=== PATIENT | male | born 1945 | race Caucasian/White ===

== ENCOUNTER 2018-05-14 08:15 | Observation (INO) | payer OTHER ==
[~2018-05-14 08:15] MED LIST: POVIDONE-IODINE 20 ML in SODIUM CL IRRIG SOLUTION 500 ML IRR ONE; ROPIVACAINE 0.2% 80 MG, EPINEPHrine 0.2 MG, KETOROLAC TROMETHAMINE 30 MG in SYRINGE 0 ML IU ONE; TRANEXAMIC ACID 1,000 MG in NS 100 ML IV ONE; TRANEXAMIC ACID 3,000 MG in NS (SYRINGE) 50 ML IRR ONE
[2018-05-14] MEDS ORDERED: GABAPENTIN 300 MG CAP PO ONE (08:44)
[2018-05-14] MEDS ORDERED: DEXAMETHASONE 4 MG/ML VIAL IVP ONE (08:44)
[2018-05-14] MEDS ORDERED: FAMOTIDINE 20 MG TAB PO ONE (08:44)
[2018-05-14] MEDS ORDERED: ONDANSETRON 4 MG/2 ML VIAL IVP ONE (08:44)
[2018-05-14] MEDS ORDERED: ACETAMINOPHEN 325 MG TAB PO ONE (08:44)
[2018-05-14] MEDS ORDERED: ceFAZolin 2 GM/DEXTROSE 100 ML IV ONE (08:44)
[2018-05-14] MEDS ORDERED: LIDOCAINE 1% 2 ML INJ ID PRN (08:45)
[2018-05-14] MEDS ORDERED: LR 1,000 ML IV ONE (08:45)
[2018-05-14] MEDS ORDERED: VANCOMYCIN 1 GM VIAL ONE (09:40)
[2018-05-14] MEDS ORDERED: TRANEXAMIC ACID 3,000 MG/50 ML BAG IRR ONE (09:40)
[2018-05-14] MEDS ORDERED: ceFAZolin 1 GM/5 ML SYR ONE (09:41)
--- NOTE | 2018-05-14 10:12 | PDHPUP ---
History & Physical Update H&P update statement: This history and physical update is based on an assessment of the patient which was completed after admission or registration (within 24 hours), but prior to the surgery/procedure. H&P update: H&P reviewed & patient examined
--- NOTE | 2018-05-14 10:50 | PDANEPAE ---
ANE History of Present Illness OA here for TKA ANE Past Medical History - Cardiovascular History Hx Hypertension: Yes Hx Arrhythmias: No Hx Chest Pain: No Hx Coronary Artery / Peripheral Vascular Disease: No Hx CHF / Valvular Disease: No Hx Palpitations: No Cardiovascular History Comment: HYPERLIPIDEMIA - Pulmonary History Hx COPD: No Hx Asthma/Reactive Airway Disease: No Hx Recent Upper Respiratory Infection: No Hx Oxygen in Use at Home: No Hx Sleep Apnea: No Sleep Apnea Screening Result - Last Documented: Positive Pulmonary History Comment: douglas triggers - Neurologic History Hx Cerebrovascular Accident: No Hx Seizures: No Hx Dementia: No - Endocrine History Hx Diabetes: No - Renal History Hx Renal Disorders: No - Liver History Hx Hepatic Disorders: No - Neurological & Psychiatric Hx Hx Neurological and Psychiatric Disorders: No - Cancer History Hx Cancer: No - Congenital Disorder History Hx Congenital Disorders: No - GI History Hx Gastrointestinal Disorders: Yes Gastrointestinal History Comment: GERD - Other Health History Other Health History: GOUT. OA. wears glasses - Chronic Pain History Chronic Pain: Yes (right knee) - Surgical History Prior Surgeries: 08/18/15 LEFT tka with Terra. B WRIST- CARPAL TUNNEL 2013. APPENDECOMTY 1978 ANE Review of Systems Review of Systems: - Exercise capacity METS (RN): 4 METS ANE Patient History - Allergies Allergies/Adverse Reactions: No Known Allergies Allergy (Verified 04/26/18 16:11) - Home Medications Home Medications: Allopurinol [Allopurinol 100 MG (*)] 100 mg PO DAILY 07/27/15 [Last Taken ] Metoprolol Tartrate [Lopressor 50 mg (*)] 50 mg PO DAILY 07/27/15 [Last Taken 3 Days Ago ~05/11/18] Niacin [Niacin 500 mg (*)] 1,500 mg PO DAILY 07/27/15 [Last Taken 2 Days Ago ~] [place]-3 Fatty Acids [Fish Oil 1000 mg (*)] 2,000 mg PO BID 07/27/15 [Last Taken 1 Week Ago ~05/07/18] Omeprazole 20 mg PO HS #0 08/02/15 [Last Taken 1 Week Ago ~05/07/18] Atorvastatin Calcium [Lipitor 40 mg (*)] 40 mg PO HS 04/19/18 [Last Taken ] Cholecalciferol Vit D3 [Vitamin D3 (*)] 1,000 units PO DAILY 04/19/18 [Last Taken 1 Week Ago ~05/07/18] Herbals/Supplements -Info Only 1 each PO DAILY 04/19/18 [Last Taken 1 Week Ago ~ 05/07/18] Ibuprofen [Motrin (*)] 200 mg PO DAILY PRN 04/19/18 [Last Taken 1 Week Ago ~] Losartan Potassium 100 mg PO DAILY 04/19/18 [Last Taken 05/14/18] - NPO status NPO Status: no food or drink >8 hours NPO Since - Liquids (Date): 05/14/18 NPO Since - Liquids (Time): 05:30 NPO Since - Solids (Date): 05/13/18 NPO Since - Solids (Time): 19:00 - Anes Hx Anes Hx: no prior problems - Smoking Hx Smoking Status: Never smoked - Alcohol Use Alcohol Use: Occasionally - Family Anes Hx Family Anes Hx: none Family Hx Anesthesia Complications: NONE ANE Labs/Vital Signs - Vital Signs Blood Pressure: 129/77 Heart Rate: 58 Respiratory Rate: 18 O2 Sat (%): 97 Height: 172.72 cm Weight: 88.451 kg ANE Physical Exam - Airway Neck exam: FROM Mallampati Score: Class 2 Mouth exam: normal dental/mouth exam - Pulmonary Pulmonary: no respiratory distress, clear to auscultation - Cardiovascular Cardiovascular: regular rate and rhythym, no murmur, rub, or gallop - ASA Status ASA Status: II ANE Anesthesia Plan Anesthesia Plan: GA with mask, spinal Regional Anesthesia: continuous NB, adductor canal FNB Total IV Anesthesia: Yes
[2018-05-14] MEDS ORDERED: MIDAZOLAM 2 MG/2 ML VIAL ONE (10:57)
[2018-05-14] MEDS ORDERED: PROPOFOL/EMULSION 500 MG/50 ML BOTTLE IV ONE ×2 (10:59→12:14)
[2018-05-14] MEDS ORDERED: fentaNYL 100 MCG/2 ML INJ IVP PRN (12:20)
[2018-05-14] MEDS ORDERED: HYDROCODONE/APAP 5/325 TAB PO PRN (12:20)
[2018-05-14] MEDS ORDERED: oxyCODONE IR 5 MG TAB PO PRN ×2 (12:20→13:05)
[2018-05-14] MEDS ORDERED: HYDROmorphONE/DILAUDID 1 MG/ML INJ IVP PRN (12:20)
[2018-05-14] MEDS ORDERED: ONDANSETRON 4 MG/2 ML VIAL IVP PRN ×2 (12:20→13:05)
[2018-05-14] MEDS ORDERED: ACETAMINOPHEN 500 MG TAB PO PRN (12:20)
[2018-05-14] MEDS ORDERED: NALOXONE HCL 0.4 MG/ML INJ IVP PRN (12:20)
[2018-05-14] MEDS ORDERED: diphenhydrAMINE 25 MG CAP PO PRN (13:05)
[2018-05-14] MEDS ORDERED: POLYETHYLENE GLYCOL 3350 17 GM PKT PO PRN (13:05)
[2018-05-14] MEDS ORDERED: LACTULOSE 20 GM/30 ML UDCUP PO PRN (13:05)
[2018-05-14] MEDS ORDERED: BISACODYL 10 MG SUPP PR PRN (13:05)
[2018-05-14] MEDS ORDERED: PROMETHAZINE HCL 25 MG/ML INJ IVP PRN (13:05)
[2018-05-14] MEDS ORDERED: TEMAZEPAM 15 MG CAP PO PRN (13:05)
[2018-05-14] MEDS ORDERED: CYCLOBENZAPRINE 10 MG TAB PO PRN (13:05)
[2018-05-14] MEDS ORDERED: METOCLOPRAMIDE 10 MG/2 ML VIAL IVP PRN (13:05)
[2018-05-14] MEDS ORDERED: MAGNESIUM HYDROXIDE 30 ML UDCUP PO PRN (13:05)
[2018-05-14] MEDS ORDERED: DIPHENOXYLATE/ATROPINE LOMOTIL 1 TAB PO PRN (13:05)
[2018-05-14] MEDS ORDERED: PROMETHAZINE HCL 25 MG SUPPR PR PRN (13:05)
[2018-05-14] MEDS ORDERED: traMADol 50 MG TAB PO PRN (13:05)
[2018-05-14] MEDS ORDERED: ONDANSETRON DISINTEGRATING 4 MG TAB PO PRN (13:05)
[2018-05-14] MEDS ORDERED: NS 500 ML IV PRN (13:05)
--- NOTE | 2018-05-14 13:06 | POSTANESTH ---
Post Anesthetic Evaluation Cardiovascular Status: Normal, Stable, Similar to Pre-Op Cond Respiratory Status: Normal, Stable, Requires Airway Assist Level of Consciousness/Mental Status: Moderately Sleepy Pain Control: Adequate, Prn Tx Ordered Nausea/Vomiting Control: Adequate, Prn Tx Ordered Complications Possibly Related to Anesthesia: None Noted
[2018-05-14] MEDS ORDERED: LR 1,000 ML IV SCH (13:30)
--- NOTE | 2018-05-14 13:44 | GOP ---
[f rep st] OPERATIVE REPORT DATE OF OPERATION: 05/14/2018 SURGEON: Michael Ellison MD MANAGER UTILIZATION: Gonzalo Pugh, PAC and Carlos A Barajas CFA. ANESTHESIA: A combination of Marcaine, spinal, IV sedation, and adductor canal block. PREOPERATIVE DIAGNOSIS: Right knee severe degenerative arthritis with varus deformity. POSTOPERATIVE DIAGNOSIS: Right knee severe degenerative arthritis with varus deformity. PROCEDURE PERFORMED: Right total knee arthroplasty, cemented, Avelar and Nephew Journey II, posterior stabilized. FINDINGS: DESCRIPTION OF PROCEDURE: The patient was given 2 g of IV Ancef preoperatively within 60 minutes. H jin also received 1000 mg of IV tranexamic acid preoperatively. He was placed on the operating room ta ble and given spinal anesthesia with Marcaine by Dr. Ludwig. He was then placed supine and given IV s edation. A King catheter was not used. He wore a SANJU stocking and SCD on the nonoperative leg. A bolster was placed under the right hip to prevent excessive external rotation of the right leg. His right lower extremity was prepped with ChloraPrep from the upper thigh tourniquet to the tips of the toes. It was draped free using sterile sheets, stockinette, and Ioban plastic adhesive drape. His l ower leg was wrapped with compressive Coban. The leg was exsanguinated with elevation and a 6-inch c ompressive wrap, and the tourniquet was inflated to 250 mmHg. The World Health Organization time-out was performed to verify the correct patient identity and the c orrect surgical side and site. The [place] time-out was also performed. The DeMayo leg holding device was sterilely attached to the operating room table and used throughout the procedure to help position the knee. A straight midline incision was made centered on the patell a. Subcutaneous tissues were sharply divided and hemostasis was obtained using electrocautery. A me dial subcutaneous flap was developed and capsule and synovium were opened in medial parapatellar fash ion. Extensive degenerative changes were present in the medial compartment and patellofemoral joint. He was eroded down to subchondral bone on his medial femoral condyle and medial tibial plateau. Th e medial capsule and periosteum were elevated off the rim of the medial tibial plateau all the way ar ound to the posteromedial corner. His medial collateral ligament was released enough to balance the medial side of the knee. In order to improve exposure, his patella was prepared first. The original thickness of the patella was measured. Peripheral osteophytes removed. I cut a flat surface on the back of the patella. He was sized for a 35 mm round resurfacing component. I removed enough bone from the patella, such that the remaining bone, plus the thickness of the patellar component recreated the original thickness of the patella. The composite thickness was 25 mm. The intramedullary alignment guide system was used to set up the distal femoral cut. The distal femu r was cut in 5 degrees of valgus. Because I was using a posterior stabilized femoral component, I ma de a +2 mm cut on the distal femur. The sizing jig was used to determine proper femoral sizing. I s hifted the size 5 jig anteriorly 1 mm in order to accommodate the size 5 without notching the anterio r cortex. The 5-in-1 cutting block was applied, and the anterior and posterior condylar cuts and cristobal mfer cuts were made. The final jig was used to remove the central portion of the distal femur to acc ommodate the posterior stabilized femoral component. I was careful to determine proper rotation by r eferencing off Whitesides line and other bony landmarks. Each cut was checked for accuracy. The fem ur was sized for a size 5 posterior stabilized component. Trial component was tapped securely into p lace and was a good fit. Next, the tibia was prepared. The proximal tibial cut was made using the extramedullary alignment gu alisha system. The cut was made in a few degrees of posterior slope. I was careful to achieve proper v arus-valgus alignment and proper rotation. The posterior compartment was cleared of meniscal remnant s. Osteophytes were removed from the back of his femoral condyles. I checked the flexion extension gaps. He was still a little bit tight medially. I went back and did a little further release of his medial collateral ligament distally. At this point, the flexion and extension gaps were symmetrical . The tibia was sized for a size 4 component. He had a small cyst on the very medial edge of his me dial tibial plateau. This was cleaned with a curette and later filled with cement. I selected the 1 0 mm polyethylene trial tibial insert. The knee came to full extension and flexed to 130 degrees. Mira abdi had about 2 mm of lateral laxity in extension, but was well balanced in 90 degrees of flexion. The trial patellar button was applied and tracking was checked. He had excellent tracking without any d igital pressure. 40 cc of the joint anesthetic cocktail were injected into the posterior capsule, the quadriceps muscl e and tendon areas, and the subcutaneous tissues along the skin edges. The surfaces were prepared for cementing. They were carefully cleaned with the pulsating lavage irri gation and thoroughly dried. The CarboJet device was used to blow dry the cancellous surfaces. A do uble batch of high viscosity methylmethacrylate cement with 2 g of powdered vancomycin added was mixe d. While it was still in a doughy state, all [address] components were cemented in place. Excess cement was removed before it hardened. The 10 mm trial tibial insert was tried again and was the proper thickness. The actual component was inserted and locked into place. The knee was thoroughly irrigated 1 final time with a dilute Betadi ne solution. The tourniquet was deflated and the total tourniquet time was 51 minutes. 50 cc of tranexamic acid s olution were irrigated into the wound. The vastus medialis portion of the extensor mechanism was repaired with several interrupted figure-of -eight #2 FiberWire sutures. The capsule and synovium were closed first with multiple interrupted fi [id number]-sn-obcln 0 PDS sutures, followed by a running #2 barbed Ethicon Stratafix PDO suture. The subcu taneous tissues were closed with a running 0 barbed Ethicon Stratafix Monoderm suture. The skin was closed with a running 3-0 barbed Ethicon Stratafix Monoderm subcuticular suture. The skin was sealed with half-inch Steri-Strips. The wound was covered with a large Mepilex waterproof dressing and a 6 -inch compressive wrap. A long-leg SANJU stocking and SCD were applied, followed by the cooling device . He wore a stocking and SCD on the opposite leg during the procedure. The sacral Mepilex dressing was applied. I used a size 5 Avelar and Nephew cemented Oxinium posterior stabilized femoral component, size 4 ceme nted tibial base plate, a 10 mm posterior stabilized tibial insert, and a 35 mm cemented round all-po lyethylene resurfacing patellar component. The estimated blood loss following deflation of the tourniquet was about 100 cc. Sponge and needle count were correct on 2 occasions. He was awakened from anesthesia, transferred to his hospital [facility], and taken to PACU in satisfactor y condition. There were no recognized intraoperative complications. In the PACU, for additional pos toperative pain control, Dr. Ludwig performed an adductor canal block with an indwelling catheter. Jean Marie Pugh and Carlos A Barajas acted as surgical assistants. Their assistance was a medical necess ity for safe completion of the procedure. ANESTHESIA: Dr. Emmett Ludwig. /[id number]/MODL
[2018-05-14] MEDS: KETOROLAC 15 MG/1 ML SDV IVP SCH (17:45)
[2018-05-14] MEDS: ceFAZolin 2 GM/DEXTROSE 100 ML IV SCH (17:45)
[2018-05-14] MEDS ORDERED: ATORVASTATIN CALCIUM 40 MG TAB PO SCH (21:00)
[2018-05-14] MEDS ORDERED: PANTOPRAZOLE SODIUM 40 MG TAB PO SCH (21:00)
[2018-05-14] MEDS: ACETAMINOPHEN 325 MG TAB PO SCH (21:08)
[2018-05-14] MEDS: FAMOTIDINE 20 MG TAB PO SCH (21:10)
[2018-05-14] MEDS: SENNOSIDES/DOCUSATE SODIUM TAB PO SCH (21:10)
[2018-05-14] MEDS: ASPIRIN 325 MG TAB PO SCH (22:51)
[2018-05-15] MEDS: ACETAMINOPHEN 325 MG TAB PO SCH ×2 (01:16→08:02)
[2018-05-15] MEDS: KETOROLAC 15 MG/1 ML SDV IVP SCH ×3 (01:18→11:20)
[2018-05-15] MEDS: ceFAZolin 2 GM/DEXTROSE 100 ML IV SCH (01:21)
[2018-05-15] MEDS ORDERED: LIPID EMULSION 20% 100 ML IV PRN (07:16)
[2018-05-15] MEDS: FAMOTIDINE 20 MG TAB PO SCH (08:02)
[2018-05-15] MEDS: SENNOSIDES/DOCUSATE SODIUM TAB PO SCH (08:03)
[2018-05-15] MEDS: ASPIRIN 325 MG TAB PO SCH (08:03)
--- NOTE | 2018-05-15 08:12 | PDPAINCON ---
Pain Management Consultation Patient referred by : ALEENA - Subjective Pain at rest (/10): 0 Pain with activity (/10): 2 Pain is: no pain at all Activity: able to ambulate, participating in PT - Objective Technique: continuous peripheral nerve block Site: femoral Catheter site: clean, dry, intact, no erythema/edema/exudate Sensory and motor exam: consistent with block Vital signs: stable - Assessment/Plan Additional comments: Catheter Bolused 0.5% Ropiv 20cc prior to D/C home
[2018-05-15] MEDS ORDERED: NIACIN 500 MG TAB PO SCH (09:00)
[2018-05-15] MEDS ORDERED: METOPROLOL TARTRATE 50 MG TAB PO SCH (09:00)
[2018-05-15] MEDS ORDERED: ALLOPURINOL 100 MG TAB PO SCH (09:00)
[2018-05-15] MEDS ORDERED: LOSARTAN POTASSIUM 50 MG TAB PO SCH (09:00)
--- NOTE | 2018-05-15 09:18 | SOAPPROG ---
SOAP Progress Note Assessment/Plan: Assessment: Afebrile. Mild pain. Has been up and walking. H/H is good. Films look good. Plan:Continue PT. D/C later today. 05/15/18 09:17 Objective: Vital Signs Temp Pulse Resp BP Pulse Ox 36.5 C 62 18 145/82 H 95 05/15/18 07:27 05/15/18 08:02 05/15/18 07:27 05/15/18 08:03 05/15/18 07:27 Laboratory Results 05/15/18 04:15 05/14/18 05/15/18 05/16/18 05:59 05:59 05:59 Intake Total 2888 Output Total 2650 200 Balance 238 -200 ICD10 Worksheet Patient Problems: Problems Problem Status Onset Osteoarthritis of right knee Acute Primary osteoarthritis of left knee Acute
--- NOTE | 2018-05-15 10:22 | GDS ---
[f rep st] DISCHARGE SUMMARY ADMISSION DIAGNOSIS: Right knee severe degenerative arthritis. DISCHARGE DIAGNOSIS: Right knee severe degenerative arthritis. OPERATION PERFORMED: May 14, 2018 a right total knee arthroplasty. POSTOPERATIVE COMPLICATIONS: None. CONDITION ON DISCHARGE: Improved. DESCRIPTION OF HOSPITAL COURSE: The patient was admitted to the hospital on the morning of surgery. His admission CBC was normal. The same day, under a combination of Marcaine spinal, IV sedation, an d adductor canal block, he underwent a right total knee arthroplasty. Postoperatively, he was treate d with multimodal DVT prophylaxis, including aspirin. On the first postoperative day his hemoglobin and hematocrit were 12.0 and 33.5. He was seen by Physical Therapy and made good progress with ambul ation, stairs, and knee range of motion. By the time of discharge, he was afebrile and was independe nt walking with a walker. DISPOSITION: Patient is discharged to his home. He will go to outpatient physical therapy next week . He may progress to full weightbearing on the right as tolerated. Use SANJU stockings for 1 week. U se aspirin 325 mg p.o. daily for 21 days. I will see him back in the office on May 20, 2018. He regalado s prescriptions for Celebrex, tramadol and oxycodone for pain control. He is to call the office if t here any problems. /[id number]/MODL
--- NOTE | 2018-05-15 10:38 | ASMTLACE ---
LACE Length of stay for Answers: 2 days current admission Acuity / Level of Answers: No Care: Did the patient have an inpatient admission? Comorbidities - select Answers: Opioid dependence all that apply / Chronic pain Other Notes: HTN; HLD # of Emergency department Answers: 0 visits in the last 6 months Score: 7 Date Signed: 05/15/2018 10:38 AM Electronically Signed By:GERARDO Mendez
--- NOTE | 2018-05-15 10:41 | ASMTCMCOM ---
CM Note CM Note Notes: Pt had planned knee surgery, resides with spouse. PT and MD rec outpatient PT. No CM d/c needs identified. Date Signed: 05/15/2018 10:40 AM Electronically Signed By:GERARDO Mendez
[2018-05-15 11:09] VITALS: BP 134/71
== END 2018-05-15 12:05 | disposition home or self-care (01) ==
LOC: F3N 08:33
PROVIDERS: ADMIT Orthopaedic Surgery; ATTEND Orthopaedic Surgery
PROC: 0SRC0J9 Replacement of Right Knee Joint with Synthetic Substitute, Cemented, Open Approach (ICD-10-PCS; principal; 2018-05-14 11:15)
DX: M17.11 Unilateral primary osteoarthritis, right knee (principal); M21.161 Varus deformity, not elsewhere classified, right knee
CPT/HCPCS: 27447; 73560; 77073; 88311; 97110; 97116; 97161; 97165; C1713; C1776; G0378; J0171; J0690; J1100; J1885; J2250; J2405; J2704; J2795; J3370